=== PATIENT | male | born 1985 | race Caucasian/White ===

== ENCOUNTER 2019-01-21 07:46 | Inpatient (IN) | payer MEDICAID ==
[~2019-01-21] VITALS: Ht 179.1 cm; Wt 100.7 kg
[2019-01-21 09:23] LABS: BASOPHILS % (AUTO) 1.5 % (0.0-2.0); EOSINOPHILS % (AUTO) 3.1 % (1.0-6.0); HEMOGLOBIN 14.3 g/dL (13.5-17.5); LYMPHOCYTES # (AUTO) 1.7 K/uL (1.0-4.8); LYMPHOCYTES % (AUTO) 37.6 % (22.0-44.0); MEAN CORPUSCULAR HEMOGLOBIN 29.7 pg (26.0-34.0); MEAN CORPUSCULAR HGB CONC 33.2 G/dL (31.0-37.0); MEAN CORPUSCULAR VOLUME 90 fL (80-100); MONOCYTES # (AUTO) 0.4 K/uL (0.1-1.0); MONOCYTES % (AUTO) 8.5 % (2.0-9.0); NEUTROPHILS # (AUTO) 2.3 K/uL (1.8-7.7); NEUTROPHILS % (AUTO) 49.3 % (40.0-70.0); PLATELET COUNT (AUTO) 211 K/uL (150-450); RED BLOOD CELL COUNT(AUTO) 4.81 MIL/uL (4.50-5.90); RED CELL DISTRIBUTION WIDTH 12.9 % (11.5-14.5)
[2019-01-21 09:38] LABS: ANION GAP 7 mmol/L (8-16); CALCIUM, TOTAL 8.6 mg/dL (8.8-10.5); CARBON DIOXIDE 29 mmol/L (22-29); CHLORIDE 109 mmol/L (98-107); GLOMERULAR FILTR. RATE CALC > 60 mL/min (>60); GLUCOSE,RANDOM 123 mg/dL (70-110); POTASSIUM 3.8 mmol/L (3.5-5.1); SODIUM SERUM 145 mmol/L (136-145); UREA NITROGEN, BLOOD 13 mg/dL (7-18)
[2019-01-21 09:41] LABS: ALANINE AMINOTRANSFERASE 27 U/L (12-78); ALBUMIN 3.7 g/dL (3.4-5.0); ALKALINE PHOSPHATASE 98 U/L (46-116); ASPARTATE AMINOTRANSFERASE 17 U/L (15-37); BILIRUBIN,TOTAL 0.1 mg/dL (0.1-1.0); TOTAL PROTEIN, SERUM 7.6 g/dL (6.4-8.2)
[2019-01-21] MEDS ORDERED: HALOPERIDOL 5 MG TABLET PO PRN (10:30)
[2019-01-21 13:14] LABS: AMPHET/METH SCREEN,URINE POSITIVE (NEGATIVE); BARBITURATE SCREEN, URINE NEGATIVE (NEGATIVE); BENZODIAZEPINES SCREEN,URINE NEGATIVE (NEGATIVE); CANNABINOID SCREEN,URINE NEGATIVE (NEGATIVE); COCAINE SCREEN,URINE NEGATIVE (NEGATIVE); METHADONE SCREEN, URINE NEGATIVE (NEGATIVE); OPIATE SCREEN,URINE NEGATIVE (NEGATIVE); PHENCYCLIDINE SCREEN,URINE NEGATIVE (NEGATIVE)
[2019-01-21] MEDS ORDERED: IBUPROFEN 400 MG TABLET PO PRN (17:00)
[2019-01-21] MEDS ORDERED: ACETAMINOPHEN 325 MG TABLET PO PRN (17:00)
[2019-01-21] MEDS ORDERED: LOPERAMIDE HCL 2 MG CAPSULE PO PRN (17:00)
[2019-01-21] MEDS ORDERED: DOCUSATE SODIUM 100 MG CAPSULE PO PRN (17:00)
[2019-01-21] MEDS ORDERED: NICOTINE 14 MG/24 HOUR PATCH TD PRN (17:00)
[2019-01-21] MEDS ORDERED: MAGNESIUM HYDROXIDE SUSPENSION 30 ML UDCUP PO PRN (17:00)
[2019-01-21] MEDS ORDERED: ALBUTEROL SULFATE HFA 90 MCG/PUFF 8 GM INHALER IH PRN (17:00)
[2019-01-21] MEDS ORDERED: MAG HYDROX/AL HYDROX/SIMETH ES 30 ML SUSPENSION UDCUP PO PRN (17:00)
[2019-01-21] MEDS ORDERED: GuaiFENesin/D-METHORPHAN [SUGAR-FREE] 200-20MG/10 ML SYRUP UDCUP PO PRN (17:00)
[2019-01-21] MEDS ORDERED: ONDANSETRON HCL 4 MG TABLET PO PRN (17:00)
[2019-01-21] MEDS ORDERED: PETROLATUM,WHITE 28 GM JELLY TP PRN (17:00)
[2019-01-21] MEDS ORDERED: CloNIDine HCL 0.1 MG TABLET PO PRN (17:00)
[2019-01-21 17:14] VITALS: BP 137/94
[2019-01-22] VITALS: BP 100/50
[2019-01-22 08:39] LABS: EOSINOPHILS % (AUTO) 3.5 % (1.0-6.0); HEMATOCRIT 41.1 % (41-53); HEMOGLOBIN 13.5 g/dL (13.5-17.5); LYMPHOCYTES # (AUTO) 1.9 K/uL (1.0-4.8); LYMPHOCYTES % (AUTO) 49.3 % (22.0-44.0); MEAN CORPUSCULAR HEMOGLOBIN 29.6 pg (26.0-34.0); MEAN CORPUSCULAR HGB CONC 32.8 G/dL (31.0-37.0); MEAN CORPUSCULAR VOLUME 90 fL (80-100); MONOCYTES # (AUTO) 0.3 K/uL (0.1-1.0); MONOCYTES % (AUTO) 6.8 % (2.0-9.0); NEUTROPHILS # (AUTO) 1.5 K/uL (1.8-7.7); NEUTROPHILS % (AUTO) 39.4 % (40.0-70.0); PLATELET COUNT (AUTO) 195 K/uL (150-450); RED BLOOD CELL COUNT(AUTO) 4.55 MIL/uL (4.50-5.90); RED CELL DISTRIBUTION WIDTH 13.1 % (11.5-14.5)
[2019-01-22 08:51] VITALS: BP 121/69
[2019-01-22 08:59] LABS: BILIRUBIN,URINE NEGATIVE (NEGATIVE); GLUCOSE, URINE (UA) NEGATIVE (NEGATIVE); KETONES,URINE NEGATIVE (NEGATIVE); LEUKOCYTE ESTERASE ,URINE NEGATIVE (NEGATIVE); NITRATE,URINE NEGATIVE (NEGATIVE); OCCULT BLOOD,URINE NEGATIVE (NEGATIVE); PROTEIN,URINE NEGATIVE (NEGATIVE); UROBILINOGEN,URINE 0.2 mg/dL (<=1.0)
[2019-01-22 09:03] LABS: AMPHET/METH SCREEN,URINE POSITIVE (NEGATIVE); BARBITURATE SCREEN, URINE NEGATIVE (NEGATIVE); BENZODIAZEPINES SCREEN,URINE NEGATIVE (NEGATIVE); CANNABINOID SCREEN,URINE NEGATIVE (NEGATIVE); COCAINE SCREEN,URINE NEGATIVE (NEGATIVE); METHADONE SCREEN, URINE NEGATIVE (NEGATIVE); OPIATE SCREEN,URINE NEGATIVE (NEGATIVE)
[2019-01-22 09:04] LABS: HEMOGLOBIN A1C 5.4 % (4.5-6.2)
[2019-01-22 09:04] LABS: PHENCYCLIDINE SCREEN,URINE NEGATIVE (NEGATIVE)
[2019-01-22 09:06] LABS: ALANINE AMINOTRANSFERASE 21 U/L (12-78); ALBUMIN 3.4 g/dL (3.4-5.0); ALKALINE PHOSPHATASE 82 U/L (46-116); ANION GAP 6 mmol/L (8-16); ASPARTATE AMINOTRANSFERASE 12 U/L (15-37); BILIRUBIN,TOTAL 0.2 mg/dL (0.1-1.0); CALCIUM, TOTAL 8.3 mg/dL (8.8-10.5); CARBON DIOXIDE 29 mmol/L (22-29); CHLORIDE 109 mmol/L (98-107); CHOL/HDL RATIO 2.9 (4.2-7.3); CHOLESTEROL 112 mg/dL (131-200); CREATININE 0.82 mg/dL (0.60-1.30); FREE T4 (FREE THYROXINE) 0.76 ng/dL (0.76-1.46); GLOMERULAR FILTR. RATE CALC > 60 mL/min (>60); GLUCOSE,RANDOM 91 mg/dL (70-110); HDL CHOLESTEROL 38 mg/dL (40-60); LDL CHOL (CALC.) 63 mg/dL (0-130); POTASSIUM 4.2 mmol/L (3.5-5.1); SODIUM SERUM 144 mmol/L (136-145); THYROID STIMULATING HORMONE 0.57 uIU/mL (0.36-3.74); TOTAL PROTEIN, SERUM 6.5 g/dL (6.4-8.2); TRIGLYCERIDES 56 mg/dL (15-150); UREA NITROGEN, BLOOD 14 mg/dL (7-18)
[2019-01-22 09:41] LABS: APPEARANCE,URINE HAZY (CLEAR)
[2019-01-22] MEDS: BuPROPion HCL XL 150 MG ER TABLET PO SCH (11:05)
[2019-01-22 16:07] VITALS: BP 111/69
[2019-01-22] MEDS: PALIPERIDONE 6 MG ER TABLET PO SCH (21:16)
[2019-01-23 02:23] VITALS: BP 121/66
[2019-01-23 08:00] VITALS: BP 113/56
[2019-01-23] MEDS: BuPROPion HCL XL 150 MG ER TABLET PO SCH (08:17)
[2019-01-23 15:54] VITALS: BP 112/64
[2019-01-23 16:00] VITALS: BP 112/64
[2019-01-23] MEDS: QUEtiapine FUMARATE 100 MG TABLET PO PRN (18:28)
[2019-01-23] MEDS: PALIPERIDONE 6 MG ER TABLET PO SCH (20:26)
[2019-01-24 00:41] VITALS: BP 110/68
[2019-01-24 08:10] VITALS: BP 107/57
[2019-01-24] MEDS: BuPROPion HCL XL 150 MG ER TABLET PO SCH (08:26)
[2019-01-24 16:02] VITALS: BP 112/65
[2019-01-24] MEDS: PALIPERIDONE 6 MG ER TABLET PO SCH (20:06)
[2019-01-24] MEDS: ZOLPIDEM TARTRATE 10 MG TABLET PO PRN (20:53)
[2019-01-25 08:00] VITALS: BP 127/76
[2019-01-25] MEDS: BuPROPion HCL XL 150 MG ER TABLET PO SCH (08:15)
[2019-01-25 17:00] VITALS: BP 123/73
[2019-01-25] MEDS: LORazepam 2 MG TABLET PO PRN (18:02)
[2019-01-25] MEDS: QUEtiapine FUMARATE 100 MG TABLET PO PRN (18:02)
[2019-01-25] MEDS: PALIPERIDONE 3 MG ER TABLET PO SCH (20:25)
[2019-01-26 06:23] VITALS: BP 117/60
[2019-01-26 08:14] VITALS: BP 113/64
[2019-01-26] MEDS: BuPROPion HCL XL 150 MG ER TABLET PO SCH (08:27)
[2019-01-26] MEDS: LORazepam 2 MG TABLET PO PRN ×2 (15:45→20:54)
[2019-01-26 16:10] VITALS: BP 125/75
[2019-01-26] MEDS ORDERED: DiphenhydrAMINE HCL 50 MG/ML VIAL ONE (17:07)
[2019-01-26] MEDS ORDERED: HALOPERIDOL LACTATE 5 MG/ML VIAL ONE (17:08)
[2019-01-26] MEDS ORDERED: DiphenhydrAMINE HCL 50 MG/ML VIAL IM ONE (17:15)
[2019-01-26] MEDS ORDERED: LORazepam 2 MG/ML VIAL IM ONE (17:15)
[2019-01-26] MEDS ORDERED: HALOPERIDOL LACTATE 5 MG/ML VIAL IM ONE (17:15)
[2019-01-26] MEDS: PALIPERIDONE 3 MG ER TABLET PO SCH (21:14)
[2019-01-27 08:07] VITALS: BP 145/58
[2019-01-27] MEDS: BuPROPion HCL XL 150 MG ER TABLET PO SCH (08:18)
[2019-01-27 16:10] VITALS: BP 121/72
[2019-01-27] MEDS ORDERED: DiphenhydrAMINE HCL 50 MG/ML VIAL ONE (16:16)
[2019-01-27] MEDS ORDERED: LORazepam 2 MG/ML VIAL ONE (16:16)
[2019-01-27] MEDS ORDERED: HALOPERIDOL LACTATE 5 MG/ML VIAL ONE (16:16)
[2019-01-27] MEDS ORDERED: LORazepam 2 MG/ML VIAL IM ONE (17:00)
[2019-01-27] MEDS ORDERED: HALOPERIDOL LACTATE 5 MG/ML VIAL IM ONE (17:00)
[2019-01-27] MEDS ORDERED: DiphenhydrAMINE HCL 50 MG/ML VIAL IM ONE (17:00)
[2019-01-27] MEDS: QUEtiapine FUMARATE 100 MG TABLET PO PRN (19:39)
[2019-01-27] MEDS: PALIPERIDONE 6 MG ER TABLET PO SCH (21:30)
[2019-01-27] MEDS: ZOLPIDEM TARTRATE 10 MG TABLET PO PRN (23:50)
[2019-01-27] MEDS: LORazepam 2 MG TABLET PO PRN (23:50)
[2019-01-28 00:55] VITALS: BP 117/54
[2019-01-28 08:44] VITALS: BP 133/87
[2019-01-28] MEDS: BuPROPion HCL XL 150 MG ER TABLET PO SCH (09:00)
[2019-01-28] MEDS ORDERED: PALIPERIDONE PALMITATE 234 MG/1.5 ML SYRINGE IM ONE (10:15)
[2019-01-28] MEDS: QUEtiapine FUMARATE 100 MG TABLET PO PRN (17:02)
[2019-01-28] MEDS: LORazepam 2 MG TABLET PO PRN (17:05)
[2019-01-28] MEDS: PALIPERIDONE 6 MG ER TABLET PO SCH (20:40)
[2019-01-28] MEDS: ZOLPIDEM TARTRATE 10 MG TABLET PO PRN (20:40)
[2019-01-29] MEDS: BuPROPion HCL XL 150 MG ER TABLET PO SCH (08:45)
[2019-01-29] MEDS ORDERED: PALIPERIDONE PALMITATE 234 MG/1.5 ML SYRINGE IM ONE (10:45)
[2019-01-29 16:22] VITALS: BP 113/62
[2019-01-29] MEDS: LORazepam 2 MG TABLET PO PRN (17:05)
[2019-01-29] MEDS: QUEtiapine FUMARATE 100 MG TABLET PO PRN (17:05)
[2019-01-29] MEDS: PALIPERIDONE 6 MG ER TABLET PO SCH (20:15)
[2019-01-30 08:04] VITALS: BP 102/61
[2019-01-30] MEDS: BuPROPion HCL XL 150 MG ER TABLET PO SCH (09:18)
[2019-01-30 16:00] VITALS: BP 127/66
[2019-01-30] MEDS: QUEtiapine FUMARATE 100 MG TABLET PO PRN (16:57)
[2019-01-30] MEDS: LORazepam 2 MG TABLET PO PRN (16:57)
[2019-01-30] MEDS: PALIPERIDONE 6 MG ER TABLET PO SCH (20:39)
[2019-01-30] MEDS: ZOLPIDEM TARTRATE 10 MG TABLET PO PRN (20:39)
[2019-01-31] MEDS: BuPROPion HCL XL 150 MG ER TABLET PO SCH (09:00)
[2019-01-31 09:33] VITALS: BP 113/60
[2019-01-31] MEDS: LORazepam 2 MG TABLET PO PRN ×2 (16:47→20:57)
[2019-01-31] MEDS: QUEtiapine FUMARATE 100 MG TABLET PO PRN (16:47)
[2019-01-31] MEDS: ZOLPIDEM TARTRATE 10 MG TABLET PO PRN (20:57)
[2019-01-31] MEDS: PALIPERIDONE 6 MG ER TABLET PO SCH (20:57)
[2019-02-01 08:21] VITALS: BP 112/64
[2019-02-01] MEDS: BuPROPion HCL XL 150 MG ER TABLET PO SCH (08:46)
[2019-02-01] MEDS: QUEtiapine FUMARATE 100 MG TABLET PO PRN (16:29)
[2019-02-01] MEDS: LORazepam 2 MG TABLET PO PRN (16:29)
[2019-02-01] MEDS: ZOLPIDEM TARTRATE 10 MG TABLET PO PRN (20:45)
[2019-02-01] MEDS: PALIPERIDONE 6 MG ER TABLET PO SCH (20:45)
[2019-02-02] MEDS: BuPROPion HCL XL 150 MG ER TABLET PO SCH (08:41)
[2019-02-02] MEDS: QUEtiapine FUMARATE 100 MG TABLET PO PRN ×2 (14:29→19:25)
[2019-02-02] MEDS: LORazepam 2 MG TABLET PO PRN ×2 (14:29→19:25)
[2019-02-02 16:27] VITALS: BP 126/74
[2019-02-02] MEDS: ZOLPIDEM TARTRATE 10 MG TABLET PO PRN (20:57)
[2019-02-03] MEDS: BuPROPion HCL XL 150 MG ER TABLET PO SCH (08:29)
[2019-02-03] MEDS: LORazepam 2 MG TABLET PO PRN ×2 (14:10→18:15)
[2019-02-03] MEDS: QUEtiapine FUMARATE 100 MG TABLET PO PRN ×2 (14:11→18:15)
[2019-02-03 16:45] VITALS: BP 128/91
[2019-02-03] MEDS: ZOLPIDEM TARTRATE 10 MG TABLET PO PRN (20:04)
[2019-02-04 01:54] VITALS: BP 122/82
[2019-02-04] MEDS: BuPROPion HCL XL 150 MG ER TABLET PO SCH (08:36)
[2019-02-04 08:47] VITALS: BP 107/62
[2019-02-04] MEDS ORDERED: BUPR-93 PO (11:39)
== END 2019-02-04 19:47 | disposition home or self-care (01) | DRG 750 ==
LOC: EMS 07:46 → B2S 15:13 → B3A 01-27 20:28
PROVIDERS: ADMIT Psychiatry & Neurology Psychiatry; ATTEND Psychiatry & Neurology Psychiatry
DX: F20.0 Paranoid schizophrenia (principal); R45.851 Suicidal ideations; E83.51 Hypocalcemia; Z59.0 Homelessness; D72.819 Decreased white blood cell count, unspecified; F12.90 Cannabis use, unspecified, uncomplicated; F15.10 Other stimulant abuse, uncomplicated; F39 Unspecified mood [affective] disorder; K21.9 Gastro-esophageal reflux disease without esophagitis; Z91.19 Patient's noncompliance with other medical treatment and regimen; F17.210 Nicotine dependence, cigarettes, uncomplicated
CPT/HCPCS: 80307; 83036; 84439; 84443; 87081; G0480; J1200; J1630; J2060

== ENCOUNTER 2021-02-01 11:18 | Emergency (ER) | payer MEDICAID, OTHER ==
[~2021-02-01] VITALS: Ht 177.8 cm; Wt 109.1 kg
[~2021-02-01 11:18] MED LIST: BUPR-93 PO; PALI234D IM
[2021-02-01] MEDS ORDERED: ACETAMINOPHEN 500 MG TABLET PO ONE (12:30)
[2021-02-01] MEDS ORDERED: KETOROLAC TROMETHAMINE 30 MG/ML VIAL IVP ONE (12:30)
[2021-02-01] MEDS ORDERED: SODIUM CHLORIDE 0.9% 1,000 ML IV ONE (12:30)
[2021-02-01 12:58] LABS: BASOPHILS % (AUTO) 0.8 % (0.0-2.0); EOSINOPHILS % (AUTO) 1.5 % (1.0-6.0); HEMATOCRIT 45.8 % (41-53); HEMOGLOBIN 15.5 g/dL (13.5-17.5); LYMPHOCYTES # (AUTO) 1.7 K/uL (1.0-4.8); LYMPHOCYTES % (AUTO) 25.5 % (22.0-44.0); MEAN CORPUSCULAR HEMOGLOBIN 29.9 pg (26.0-34.0); MEAN CORPUSCULAR HGB CONC 33.9 G/dL (31.0-37.0); MEAN CORPUSCULAR VOLUME 88 fL (80-100); MONOCYTES # (AUTO) 0.5 K/uL (0.1-1.0); MONOCYTES % (AUTO) 8.2 % (2.0-9.0); NEUTROPHILS # (AUTO) 4.2 K/uL (1.8-7.7); PLATELET COUNT (AUTO) 217 K/uL (150-450); RED BLOOD CELL COUNT(AUTO) 5.18 MIL/uL (4.50-5.90); RED CELL DISTRIBUTION WIDTH 14.2 % (11.5-14.5)
[2021-02-01 13:15] LABS: ALANINE AMINOTRANSFERASE 44 U/L (12-78); ALBUMIN 4.1 g/dL (3.4-5.0); ALKALINE PHOSPHATASE 84 U/L (46-116); ASPARTATE AMINOTRANSFERASE 18 U/L (15-37); BILIRUBIN,TOTAL 0.3 mg/dL (0.1-1.0); CHLORIDE 102 mmol/L (98-107); CREATININE 0.82 mg/dL (0.60-1.30); GLOMERULAR FILTR. RATE CALC > 60 mL/min (>60); GLUCOSE,RANDOM 91 mg/dL (70-110); LIPASE 77 U/L (73-393); POTASSIUM 4.1 mmol/L (3.5-5.1); SODIUM SERUM 138 mmol/L (136-145); TOTAL PROTEIN, SERUM 7.6 g/dL (6.4-8.2); UREA NITROGEN, BLOOD 15 mg/dL (7-18)
[2021-02-01 13:20] LABS: ANION GAP 9 mmol/L (8-16); CARBON DIOXIDE 27 mmol/L (22-29)
[2021-02-01 14:00] VITALS: BP 142/76
== END 2021-02-01 14:17 | disposition home or self-care (01) ==
LOC: EMS 11:18
DX: R10.31 Right lower quadrant pain (principal); R19.7 Diarrhea, unspecified; F20.9 Schizophrenia, unspecified; F17.210 Nicotine dependence, cigarettes, uncomplicated; F12.90 Cannabis use, unspecified, uncomplicated; F19.90 Other psychoactive substance use, unspecified, uncomplicated
CPT/HCPCS: 74176; 80053; 83690; 85025; 96361; 96374; 99284; J1885; J7030; 36415-L1; 36415-TC

== ENCOUNTER 2021-05-26 08:18 | Emergency (ER) | payer OTHER ==
[~2021-05-26] VITALS: Ht 180.3 cm; Wt 109.1 kg
[2021-05-26 13:33] LABS: BILIRUBIN,URINE NEGATIVE (NEGATIVE); GLUCOSE, URINE (UA) NEGATIVE (NEGATIVE); KETONES,URINE NEGATIVE (NEGATIVE); NITRATE,URINE NEGATIVE (NEGATIVE); OCCULT BLOOD,URINE NEGATIVE (NEGATIVE); PH,URINE 5.5 (5.0-8.0); PROTEIN,URINE TRACE (NEGATIVE); UROBILINOGEN,URINE 0.2 mg/dL (<=1.0)
[2021-05-26 13:37] LABS: BASOPHILS % (AUTO) 1.2 % (0.0-2.0); EOSINOPHILS % (AUTO) 3.9 % (1.0-6.0); HEMATOCRIT 46.5 % (41-53); HEMOGLOBIN 15.7 g/dL (13.5-17.5); LYMPHOCYTES # (AUTO) 1.5 K/uL (1.0-4.8); LYMPHOCYTES % (AUTO) 20.8 % (22.0-44.0); MEAN CORPUSCULAR HEMOGLOBIN 30.1 pg (26.0-34.0); MEAN CORPUSCULAR HGB CONC 33.8 G/dL (31.0-37.0); MEAN CORPUSCULAR VOLUME 89 fL (80-100); MONOCYTES # (AUTO) 0.6 K/uL (0.1-1.0); NEUTROPHILS # (AUTO) 4.8 K/uL (1.8-7.7); NEUTROPHILS % (AUTO) 66.1 % (40.0-70.0); PLATELET COUNT (AUTO) 251 K/uL (150-450); RED BLOOD CELL COUNT(AUTO) 5.22 MIL/uL (4.50-5.90); RED CELL DISTRIBUTION WIDTH 13.7 % (11.5-14.5)
[2021-05-26 13:39] LABS: APPEARANCE,URINE HAZY (CLEAR)
[2021-05-26 13:40] LABS: BACTERIA,URINE Few /HPF (None Seen); LEUKOCYTE ESTERASE ,URINE LARGE (NEGATIVE); RBC,URINE 0-2 /HPF (0-2); WBC,URINE 51-100 /HPF (0-5)
[2021-05-26 13:44] LABS: ANION GAP 7 mmol/L (8-16); CALCIUM, TOTAL 8.9 mg/dL (8.8-10.5); CARBON DIOXIDE 30 mmol/L (22-29); CHLORIDE 99 mmol/L (98-107); CREATININE 0.87 mg/dL (0.60-1.30); GLOMERULAR FILTR. RATE CALC > 60 mL/min (>60); GLUCOSE,RANDOM 101 mg/dL (70-110); SODIUM SERUM 136 mmol/L (136-145); UREA NITROGEN, BLOOD 14 mg/dL (7-18)
[2021-05-26 13:49] LABS: ALANINE AMINOTRANSFERASE 31 U/L (12-78); ALBUMIN 3.8 g/dL (3.4-5.0); ALKALINE PHOSPHATASE 88 U/L (46-116); ASPARTATE AMINOTRANSFERASE 17 U/L (15-37); BILIRUBIN,TOTAL 0.4 mg/dL (0.1-1.0); LIPASE 101 U/L (73-393); TOTAL PROTEIN, SERUM 8.3 g/dL (6.4-8.2)
[2021-05-26 14:17] VITALS: BP 123/84
== END 2021-05-26 14:29 | disposition home or self-care (01) ==
LOC: EMS 08:21
DX: K59.00 Constipation, unspecified (principal)
CPT/HCPCS: 74022; 80053; 81001; 83690; 85025; 87086; 99284